=== PATIENT | female | born 1935 | race Caucasian/White ===

== ENCOUNTER → 2023-11-21 08:10 | Outpatient (REF) | payer MEDICARE, SELFPAY ==
[2023-11-21 12:33] LABS: % Basophils 0.5 % (0-2); % Eosinophils 0.5 % (0-6); % Immature Granulocytes 0.5 % (0-0.5); % Lymphocytes 25.8 % (20.5-51.1); % Monocytes 8.5 % (1.7-9.3); % Neutrophils 64.2 % (42.2-75.2); Absolute Monocytes 0.7 10^3/uL (0.1-0.6); Absolute Neutrophils 4.9 10^3/uL (1.4-6.5); Hematocrit 35.4 % (37.0-47.0); Hemoglobin 11.7 g/dL (12.0-16.0); Mean Corp Hgb Conc. 33.1 g/dL (33.0-37.0); Mean Corpuscular Hgb 31.5 pg (27.0-31.0); Mean Corpuscular Volume 95.2 fL (81.0-99.0); Mean Platelet Volume 10.4 fL (7.4-10.4); Nucleated Red Blood Cells % 0 %; Platelet Count 264 10^3/uL (130-400); Red Blood Cell Count 3.72 10^6/uL (4.20-5.40); Red Cell Dist. Width 13.7 % (11.5-14.5); White Blood Cell Count 7.6 10^3/uL (4.8-10.8)
[2023-11-21 12:45] LABS: ALT (SGPT) 19 U/L (0-35); AST (SGOT) 34 U/L (14-36); Albumin 4.5 g/dl (3.5-5.0); Alkaline Phosphatase 61 U/L (38-126); Blood Urea Nitrogen 39 mg/dl (7-17); Calcium 9.5 mg/dl (8.4-10.2); Carbon Dioxide 27 mmol/L (22-30); Chloride 100 mmol/L (98-107); Glucose 98 mg/dl (70-99); HDL Cholesterol 43 mg/dl; LDL Cholesterol, Calculated 133 mg/dl; Potassium 4.5 mmol/L (3.5-5.1); Sodium 135 mmol/L (135-145); Total Bilirubin 0.8 mg/dl (0.2-1.3); Total Cholesterol 220 mg/dl (50-199); Total Protein 7.3 g/dl (6.3-8.2); Triglyceride 220 mg/dl (10-149); Very Low Density Lipoprotein 44 mg/dl (0-30); eGFR 31.21
== END ==
LOC: DHCBS HW 08:10
PROVIDERS: ATTENDING PHYSICIAN Internal Medicine Cardiovascular Disease; FAMILY PHYSICIAN Internal Medicine
DX: I35.1 Nonrheumatic aortic (valve) insufficiency (principal); I10 Essential (primary) hypertension; E78.5 Hyperlipidemia, unspecified; D64.9 Anemia, unspecified
CPT/HCPCS: 36415; 80053; 80061; 85025; 93306

== ENCOUNTER → 2023-12-11 07:07 | Outpatient (REF) | payer MEDICARE, SELFPAY ==
[2023-12-11 09:29] LABS: Blood Urea Nitrogen 40 mg/dl (7-17); Calcium 9.8 mg/dl (8.4-10.2); Carbon Dioxide 29 mmol/L (22-30); Chloride 99 mmol/L (98-107); Glucose 102 mg/dl (70-99); Potassium 4.2 mmol/L (3.5-5.1); Sodium 136 mmol/L (135-145); eGFR 33.73
== END ==
LOC: HWLAB 07:07
PROVIDERS: ATTENDING PHYSICIAN Internal Medicine Cardiovascular Disease; FAMILY PHYSICIAN Internal Medicine
DX: N18.31 Chronic kidney disease, stage 3a (principal)
CPT/HCPCS: 36415; 80048

== ENCOUNTER → 2023-12-17 06:59 | Outpatient (REF) | payer MEDICARE, SELFPAY ==
[2023-12-17 08:58] LABS: % Basophils 0.2 % (0-2); % Lymphocytes 12.3 % (20.5-51.1); % Neutrophils 76.5 % (42.2-75.2); Absolute Immature Granulocytes 0.1 10^3/uL (0-0.05); Absolute Lymphocytes 1.7 10^3/uL (1.2-3.4); Absolute Monocytes 1.4 10^3/uL (0.1-0.6); Absolute Neutrophils 10.6 10^3/uL (1.4-6.5); Hemoglobin 11.2 g/dL (12.0-16.0); Mean Corp Hgb Conc. 32.9 g/dL (33.0-37.0); Mean Corpuscular Hgb 31.4 pg (27.0-31.0); Mean Corpuscular Volume 95.2 fL (81.0-99.0); Mean Platelet Volume 10.6 fL (7.4-10.4); Nucleated Red Blood Cells % 0 %; Platelet Count 292 10^3/uL (130-400); Red Blood Cell Count 3.57 10^6/uL (4.20-5.40); Red Cell Dist. Width 13.1 % (11.5-14.5); White Blood Cell Count 13.9 10^3/uL (4.8-10.8)
[2023-12-17 09:22] LABS: ALT (SGPT) 18 U/L (0-35); AST (SGOT) 28 U/L (14-36); Albumin 4.5 g/dl (3.5-5.0); Alkaline Phosphatase 79 U/L (38-126); Blood Urea Nitrogen 46 mg/dl (7-17); Calcium 9.6 mg/dl (8.4-10.2); Carbon Dioxide 25 mmol/L (22-30); Chloride 101 mmol/L (98-107); Glucose 96 mg/dl (70-99); Sodium 135 mmol/L (135-145); Total Bilirubin 0.5 mg/dl (0.2-1.3); Total Protein 7.4 g/dl (6.3-8.2); eGFR 36.64
[2023-12-17 09:28] LABS: Potassium 4.1 mmol/L (3.5-5.1)
[2023-12-17 09:32] LABS: NT-proBNP 5430 pg/ml
== END ==
LOC: HWLAB 06:59
PROVIDERS: ATTENDING PHYSICIAN Internal Medicine
DX: M54.9 Dorsalgia, unspecified (principal); R63.4 Abnormal weight loss; I35.1 Nonrheumatic aortic (valve) insufficiency
CPT/HCPCS: 36415; 71101; 72072; 72110; 80053; 83880; 85025

== ENCOUNTER → 2024-04-10 07:06 | Outpatient (REF) | payer MEDICARE, SELFPAY ==
[2024-04-10 10:13] LABS: % Basophils 0.7 % (0-2); % Eosinophils 1.2 % (0-6); % Immature Granulocytes 0.7 % (0-0.5); % Lymphocytes 23.8 % (20.5-51.1); % Monocytes 9.2 % (1.7-9.3); % Neutrophils 64.4 % (42.2-75.2); Absolute Basophils 0.1 10^3/uL (0-0.2); Absolute Eosinophils 0.1 10^3/uL (0-0.7); Absolute Immature Granulocytes 0.1 10^3/uL (0-0.05); Absolute Lymphocytes 1.7 10^3/uL (1.2-3.4); Absolute Monocytes 0.7 10^3/uL (0.1-0.6); Absolute Neutrophils 4.7 10^3/uL (1.4-6.5); Hematocrit 34.2 % (37.0-47.0); Hemoglobin 11.3 g/dL (12.0-16.0); Mean Corpuscular Hgb 30.4 pg (27.0-31.0); Mean Corpuscular Volume 91.9 fL (81.0-99.0); Mean Platelet Volume 10.5 fL (7.4-10.4); Nucleated Red Blood Cells % 0 %; Platelet Count 249 10^3/uL (130-400); Red Blood Cell Count 3.72 10^6/uL (4.20-5.40); Red Cell Dist. Width 13.6 % (11.5-14.5); White Blood Cell Count 7.3 10^3/uL (4.8-10.8)
[2024-04-10 10:34] LABS: NT-proBNP 2310 pg/ml
[2024-04-10 11:59] LABS: Blood Urea Nitrogen 64 mg/dl (7-17); Calcium 9.6 mg/dl (8.4-10.2); Carbon Dioxide 26 mmol/L (22-30); Chloride 99 mmol/L (98-107); Glucose 96 mg/dl (70-99); Potassium 4.9 mmol/L (3.5-5.1); Sodium 136 mmol/L (135-145); eGFR 23.73
== END ==
LOC: HWLAB 07:06
PROVIDERS: ATTENDING PHYSICIAN Internal Medicine
DX: I10 Essential (primary) hypertension (principal); I35.1 Nonrheumatic aortic (valve) insufficiency; D64.9 Anemia, unspecified
CPT/HCPCS: 36415; 80048; 83880; 85025

== ENCOUNTER → 2024-05-16 07:22 | Outpatient (REF) | payer MEDICARE, SELFPAY ==
[2024-05-16 09:42] LABS: Blood Urea Nitrogen 46 mg/dl (7-17); Calcium 9.6 mg/dl (8.4-10.2); Carbon Dioxide 27 mmol/L (22-30); Chloride 100 mmol/L (98-107); Glucose 99 mg/dl (70-99); Potassium 5.3 mmol/L (3.5-5.1); Sodium 140 mmol/L (135-145); eGFR 25.24
== END ==
LOC: HWLAB 07:22
PROVIDERS: ATTENDING PHYSICIAN Internal Medicine
DX: R63.4 Abnormal weight loss (principal); N18.30 Chronic kidney disease, stage 3 unspecified
CPT/HCPCS: 36415; 80048

== ENCOUNTER → 2024-06-11 08:21 | Outpatient (REF) | payer MEDICARE, SELFPAY ==
[2024-06-11 10:03] LABS: AST (SGOT) 35 U/L (14-36); Albumin 4.5 g/dl (3.5-5.0); Alkaline Phosphatase 101 U/L (38-126); Blood Urea Nitrogen 30 mg/dl (7-17); Calcium 9.5 mg/dl (8.4-10.2); Carbon Dioxide 21 mmol/L (22-30); Chloride 103 mmol/L (98-107); Glucose 98 mg/dl (70-99); Total Bilirubin 0.8 mg/dl (0.2-1.3); Total Protein 7.2 g/dl (6.3-8.2); eGFR 36.41
[2024-06-11 10:04] LABS: NT-proBNP 2750 pg/ml
[2024-06-11 10:19] LABS: ALT (SGPT) 19 U/L (0-35); Potassium 4.7 mmol/L (3.5-5.1); Sodium 141 mmol/L (135-145)
== END ==
LOC: HWLAB 08:21
PROVIDERS: ATTENDING PHYSICIAN Internal Medicine Cardiovascular Disease; FAMILY PHYSICIAN Internal Medicine
DX: I50.30 Unspecified diastolic (congestive) heart failure (principal)
CPT/HCPCS: 36415; 80053; 83880; 84443

== ENCOUNTER → 2024-09-18 06:37 | Outpatient (REF) | payer MEDICARE, SELFPAY ==
[2024-09-18 09:45] LABS: NT-proBNP 3280 pg/ml
[2024-09-18 10:35] LABS: Blood Urea Nitrogen 29 mg/dl (7-17); Calcium 9.2 mg/dl (8.4-10.2); Carbon Dioxide 27 mmol/L (22-30); Chloride 99 mmol/L (98-107); Glucose 121 mg/dl (70-99); Potassium 4.2 mmol/L (3.5-5.1); Sodium 137 mmol/L (135-145); eGFR 33.52
== END ==
LOC: HWLAB 06:37
PROVIDERS: ATTENDING PHYSICIAN Nurse Practitioner; FAMILY PHYSICIAN Internal Medicine
DX: I10 Essential (primary) hypertension (principal); I50.30 Unspecified diastolic (congestive) heart failure; N18.31 Chronic kidney disease, stage 3a
CPT/HCPCS: 36415; 80048; 83880

== ENCOUNTER 2024-10-20 18:33 | Inpatient (IN) | payer MEDICARE, SELFPAY ==
[2024-10-20] VITALS (9 sets, daily range): BP systolic 130–187; BP diastolic 44–57
[2024-10-20 10:50] LABS: % Basophils 0.5 % (0-2); % Eosinophils 0.8 % (0-6); % Immature Granulocytes 0.8 % (0-0.5); % Lymphocytes 12.4 % (20.5-51.1); % Monocytes 7.5 % (1.7-9.3); Absolute Basophils 0.1 10^3/uL (0-0.2); Absolute Eosinophils 0.1 10^3/uL (0-0.7); Absolute Immature Granulocytes 0.1 10^3/uL (0-0.05); Absolute Lymphocytes 1.6 10^3/uL (1.2-3.4); Absolute Monocytes 0.9 10^3/uL (0.1-0.6); Absolute Neutrophils 9.7 10^3/uL (1.4-6.5); Hematocrit 27.5 % (37.0-47.0); Hemoglobin 8.6 g/dL (12.0-16.0); Mean Corp Hgb Conc. 31.3 g/dL (33.0-37.0); Mean Corpuscular Hgb 28.6 pg (27.0-31.0); Mean Corpuscular Volume 91.4 fL (81.0-99.0); Mean Platelet Volume 9.3 fL (7.4-10.4); Nucleated Red Blood Cells % 0 %; Platelet Count 322 10^3/uL (130-400); Red Blood Cell Count 3.01 10^6/uL (4.20-5.40); Red Cell Dist. Width 14.7 % (11.5-14.5); White Blood Cell Count 12.5 10^3/uL (4.8-10.8)
[2024-10-20 11:14] LABS: PT 45.7 Sec (11.4-14.6)
[2024-10-20 11:16] LABS: APTT 98.7 Sec (23.4-35.0)
[2024-10-20 11:36] LABS: ALT (SGPT) < 10 U/L (0-35); AST (SGOT) 20 U/L (14-36); Albumin 4.5 g/dl (3.5-5.0); Alkaline Phosphatase 83 U/L (38-126); Blood Urea Nitrogen 36 mg/dl (7-17); Calcium 7.9 mg/dl (8.4-10.2); Carbon Dioxide 18 mmol/L (22-30); Chloride 110 mmol/L (98-107); Glucose 82 mg/dl (70-99); Potassium 3.4 mmol/L (3.5-5.1); Sodium 142 mmol/L (135-145); Total Bilirubin 0.5 mg/dl (0.2-1.3); Total Protein 6.7 g/dl (6.3-8.2); eGFR 36.41
--- NOTE | 2024-10-20 12:39 | ED.GENMED ---
History of Present Illness
General
Chief Complaint: Rectal Bleeding
Time Seen by Provider: 10/20/24 12:21
History of Present Illness
History of Present Illness:
89-year-old with history of aortic stenosis, CHF, hypertension, and hyperlipidemia presents to the emergency department for evaluation of vaginal bleeding is been ongoing for the past 2 days. She has been going through multiple pads each day. She
is on Xarelto, last dose was taken this morning. Has had multiple bowel movements since the start of the symptoms with no evidence for blood. Denies any dizziness or lightheadedness, no chest pain or shortness of breath
Past History
Past History
ED Past Medical History: CHF, HTN, Hypercholesterolemia and Valvular disease
ED Past Surgical History: Tonsilectomy
Review of Systems
Review of Systems
Allergies reviewed?: Yes
All Other Systems: ROS reviewed and negative except as documented in HPI and ROS
Phy Exam
Physical Exam
Physical Exam:
GEN: Well appearing, NAD, WDWN
HEENT: Oral mucosa moist, no scleral icterus
Cardiac: Regular rate
Lung: No respiratory distress, no tachypnea
: Exam performed with turbine technician at bedside as track layer. Trace clotted blood in the vaginal vault with thin white discharge. No evidence for rectal bleeding
MSK: No gross deformity or injuries
Skin: Good color, no pallor or jaundice, no rashes
Neuro: AO x3, moves all extremities freely
Psych: Calm, cooperative
Course
Orders/Labs/Results
Orders:
Orders
10/20/24 10:33
Type+Screen Urgent
Complete Blood Count/With Diff Urgent
Comprehensive Metabolic Panel Urgent
PTT Urgent
Prothrombin Time Urgent
10/20/24 12:20
ABO2 Urgent
BBK Wristband Number:
Associate notified that ABO2 has been ordered: ATIFF-ER
Date: 10/20/24
Time: 10:45
Hotel Administrative Assistant ID: [id number]
10/20/24 12:37
US Pelvis W Transvag Combined Urgent
Comment:
Reason For Exam: post menopausal vag bleeding
10/20/24 18:05
Potassium Chloride [KCl] 20 meq PO NOW STA
10/20/24 18:07
Consult VALIDATION SOFTWARE FACILITATOR [VALIDATION SOFTWARE FACILITATOR CONSULT] Routine
Consulting Provider: Tiffanie Jaeger
Was physician already notified: Yes
10/20/24 18:08
Admit/Transfer Patient As Directed
Co-Sign Provider:
Level of Care: Inpatient admission
Assign to:: Medical/Surgical
Physician / Group: Duane Jacob
Diagnosis: Vaginal Bleeding
Reason for Hospitalization: WEAVER DOBBY LOOM consult, possible blood transfusion
Expected length of stay greater than two midnights?: Yes
ELOS- Estimated Length of Stay in days: 3
I certify the patient meets the requirements for IP care: Yes
10/20/24 18:09
PRN Pain Medication Management As Directed
May give lesser potent ordered pain med per pt: Yes
preference::
Protocol:: Medication orders for pain may be administered in a
manner that supports deferring to patient preference
when the pt is:
- Requesting an ordered lesser potent pain medication.
Least to most potent pain medications are defined
as: acetaminophen < NSAID < tramadol < opioids
(morphine, oxycodone, hydromorphone).
- Requesting a lesser dose of the same medication IF
ORDERED.
- Requesting a less intrusive route of administration
if both routes are prescribed by the provider (PO <
IV).
10/20/24 18:11
Code Status As Directed
Resuscitation Status: Do not resuscitate
Reached after discussion with pt or family/Healthcare POA: Yes
DNR Bracelet Application ONCE
10/20/24 20:00
H&H Routine
Abnormal Lab Results
10/20/24
10:33
WBC 12.5 H 10^3/uL
(4.8-10.8)
RBC 3.01 L 10^6/uL
(4.20-5.40)
Hgb 8.6 L g/dL
(12.0-16.0)
Hct 27.5 L %
(37.0-47.0)
MCHC 31.3 L g/dL
(33.0-37.0)
RDW 14.7 H %
(11.5-14.5)
Abs Immat Gran (auto) 0.1 H 10^3/uL
(0-0.05)
Absolute Neuts (auto) 9.7 H 10^3/uL
(1.4-6.5)
Absolute Monos (auto) 0.9 H 10^3/uL
(0.1-0.6)
Immature Gran % 0.8 H %
(0-0.5)
Neutrophils % 78.0 H %
(42.2-75.2)
Lymphocytes % 12.4 L %
(20.5-51.1)
PT 45.7 H Sec
(11.4-14.6)
APTT 98.7 H Sec
(23.4-35.0)
Potassium 3.4 L mmol/L
(3.5-5.1)
Chloride 110 H mmol/L
(98-107)
Carbon Dioxide 18 L mmol/L
(22-30)
BUN 36 H mg/dl
(7-17)
Creatinine 1.4 H mg/dL
(0.6-1.0)
Calcium 7.9 L mg/dl
(8.4-10.2)
10/20/24 10:33
Vital Signs
Initial and Last Documented VS:
Initial Vital Signs
Temp Pulse Resp BP Pulse Ox
98.6 F 66 18 147/57 99
10/20/24 10:24 10/20/24 10:24 10/20/24 10:24 10/20/24 10:24 10/20/24 10:24
Last Documented Vital Signs
Temp Pulse Resp BP Pulse Ox
98.6 F 70 21 138/46 97
10/20/24 10:24 10/20/24 15:15 10/20/24 15:15 10/20/24 15:00 10/20/24 15:15
MDM/Problems Addressed
MDM/Problems Addressed:
Ultimately this presentation is consistent with new endometrial carcinoma until proven otherwise. From that standpoint alone she could reasonably discharged however given the active bleeding in the patient with blood thinner use, last dose this
morning, and a significant decline in her hemoglobin she is not suitable for outpatient management. WEAVER DOBBY LOOM contacted for inpatient consult. Will be admitted to the hospitalist service for further hemoglobin trending and management as indicated
*Critical Care Note
Total Time (30-74mins, 75-104mins- exclusive of procedures): Not Applicable
ED Attending Note
-
Portions of this chart may have been created with voice recognition software.� Occasional wrong word or��sound alike� substitutions may have occurred due to the inherent limitations of voice recognition software.
Discharge Plan
Departure
Patient Disposition: Admit
Date of Disposition: 10/20/24
Time of Disposition: 17:24
Admit to: Med/Surg
Presentation/result/management discussed w/ accepting MD/DO: Hospitalist
Discharge Problem:
Postmenopausal vaginal bleeding, Acute blood loss anemia (ABLA)
Prescriptions:
No Action
metoprolol succinate [Toprol XL] 25 mg Tablet Extended Release 24 Hr
12.5 mg PO DAILY
metoprolol succinate [Toprol XL] 25 mg Tablet Extended Release 24 Hr
25 mg PO QPM
furosemide 20 mg tablet
20 mg PO SUWESA
Patient Comments:
08/30/2023, patient states that when she is feeling sick, she only takes two tablets of this medication; however, she is prescribed to take three tablets daily.
amiodarone 200 mg tablet
100 mg PO DAILY
spironolactone 50 mg Tablet
50 mg PO DAILY
furosemide 20 mg Tablet
20 mg PO MOTUTHFR@0600,1100
Xarelto 15 mg Tablet
15 mg PO DAILY
Referrals:
Hollis Haq MD [Family Provider] -
Interventions
Interventions:
*Risk Screen - Suicide Last Done: 10/20/24 10:24
*General Assessment Last Done: 10/20/24 10:24
*Neglect/Abuse Screening Last Done: 10/20/24 12:08
*ED COVID-19 Vaccine History Last Done: 10/20/24 12:08
YR-Bqnepe-Bxjhvntayo Assessment Last Done: 10/20/24 12:08
ED- Cardiac Assessment Last Done: 10/20/24 12:36
ED- Pulmonary Assessment Last Done: 10/20/24 12:08
Discharge Date and Time
Print Language: MARTINIQUAIS
--- NOTE | 2024-10-20 17:38 | HPS.HSE ---
Family Physician
-
Family Physician: Mook Haq
Chief Complaint
-
Vaginal Bleeding
History of Present Illness
Patient is an 89 y/o female past medical history of paroxysmal atrial fibrillation on Xarelto, valvular heart disease with chronic heart failure who presents with vaginal bleeding. Patient reports bleeding started yesterday. She reports using
about 3 pads yesterday. She denies any prior episodes of post-menopausal bleeding. She denies chest pain, palpitations, dizziness/lightheadedness or shortness of breath. She denies abdominal pain.
Medical History
Past Medical History
Past Medical History: Reports Other
Additional Past Medical History:
Valvular Heart Disease: Mild , Moderate/Severe AR, Moderate/Severe TR
Chronic HFpEF
Severe Pulmonary Hypertension
Paroxysmal Atrial Fibrillation
CKD Stage III
Past Surgical History: Reports Other
Additional Past Surgical History:
Tonsillectomy
Social History
Tobacco: Non-smoker
Alcohol: None
Living: Alone
Family History
Family History: Not pertinent
Allergies / Home Medications
Allergies reflects when Allergies were last updated in [facility].
Home Medications with original date entered in [facility]
Allergy/Medication List:
Allergies
Allergy/AdvReac Type Severity Reaction Status Date / Time
Sulfa (Sulfonamide Allergy Unknown Unknown Verified 10/20/24 10:23
Antibiotics) occurred
when pt
was 22 yo
sulfisoxazole Allergy Unknown Unknown Verified 10/20/24 10:23
Penicillins Allergy Unknown Verified 10/20/24 10:23
occurred
when pt
was 22 yo
Home Medications
metoprolol succinate 25 mg tablet,extended release 24 hr (Toprol XL) 12.5 mg PO DAILY Heart disease/condition 08/01/22
metoprolol succinate 25 mg tablet,extended release 24 hr (Toprol XL) 25 mg PO QPM Heart disease/condition 08/01/22
amiodarone 200 mg tablet 100 mg PO DAILY atrial fibrillation 01/19/23
furosemide 20 mg tablet 20 mg PO SUWESA Fluid retention/Swelling 01/19/23
spironolactone 50 mg tablet 50 mg PO DAILY 08/30/23
furosemide 20 mg tablet 20 mg PO MOTUTHFR@0600,1100 10/20/24
rivaroxaban 15 mg tablet (Xarelto) 15 mg PO DAILY 10/20/24
Review of Systems
-
A 12 point ROS was completed and negative except as noted: Yes
Constitutional: Denies Fever or Chills
Respiratory: Denies Cough or Trouble Breathing
Cardiac: Denies Chest Pain or Palpitations
Abdomen/GI: Denies Abdominal Pain, Nausea or Vomiting
Physical Exam
Vital Signs
Vital Signs
Temp Pulse Resp BP Pulse Ox
98.6 F 70 21 138/46 97
10/20/24 10:24 10/20/24 15:15 10/20/24 15:15 10/20/24 15:00 10/20/24 15:15
Physical Exam
General: Comfortable, Conversant and Other (Appears slightly pale)
HEENT: Anicteric and Moist mucous membranes
Respiratory: Clear and Non Labored Respirations
Cardiac: S1/S2, Regular Rhythm and Murmur
GI: Soft and Non Tender
Rectal: Deferred by Provider
Musculoskeletal: No Clubbing, No Cyanosis and No Edema
Skin: Warm and Dry
Neuro: Awake, Alert, Oriented and Nonfocal/grossly intact
Psych: Calm
Laboratory Results
-
10/20/24 10:33
10/20/24 10:33
Laboratory Results
PT 45.7 Sec (11.4-14.6) H 10/20/24 10:33
INR 5.00 10/20/24 10:33
APTT 98.7 Sec (23.4-35.0) H 10/20/24 10:33
Total Bilirubin 0.5 mg/dl (0.2-1.3) 10/20/24 10:33
AST 20 U/L (14-36) 10/20/24 10:33
ALT < 10 U/L (0-35) 10/20/24 10:33
Alkaline Phosphatase 83 U/L (38-126) 10/20/24 10:33
Pelvic Ultrasound:
Rounded region of heterogeneous echogenicity within the central uterus. Main differential considerations of fibroid and endometrial mass, and endometrial carcinoma is not excluded.
Data Reviewed
-
Ultrasound: Report Reviewed by me
Lab Data: Labs Reviewed by me
Impression/Plan
-
Vaginal Bleeding
-Pelvis US raises concern for possible fibroid vs endometrial mass / cancer
-Consult Gynecology
Acute Blood Anemia secondary to vaginal bleeding
-Monitor serial Hgb
-Blood consent obtained at the time of admission
Chronic HFpEF
Valvular Heart Disease: Mild , Moderate/Severe AR, Moderate/Severe TR
-Continue Lasix and Spironolactone
-Monitor Daily Weights
Paroxysmal Atrial Fibrillation
-Continue metoprolol for rate control
-Xarelto on hold due to bleeding
CKD Stage III
-Creatinine at baseline
DVT proph: SCDs
Code Status: DNR
--- NOTE | 2024-10-20 18:17 | W.PN.UPDATE ---
Update Note
Progress Note Update
I saw and examined the patient.
The ATHLETIC SHOE DESIGNER's note was reviewed and I agree with the note.
89F with PMH Of essential hypertension, diastolic heart failure, paroxysmal A-fib on Xarelto came to ER with increased vaginal bleeding. Patient denies of having any associated dizziness/palpitation. Patient has been on Xarelto for 2 years no
previous history of TIA/CVA. In primary testing in ER concerning of patient possibly having endometrial carcinoma/fibroid.
Patient being admitted to medical services for further evaluation. Gynecology has been consulted by ER doctor.
HEENT: No pallor, cyanosis, or jaundice. Throat clear.
NECK: Supple. No JVD.
RESPIRATORY: Lungs clear to auscultation.
CVS: S1, S2 normal. RRR. No murmur, rub or gallop.
ABDOMEN: Soft, non-tender. No distension. BS+/normal.
EXTREMITIES: No peripheral cyanosis or edema.
SUPERVISORY TRAINING SPECIALIST: AOx3. No focal deficits.
Trans vag US
Rounded region of heterogeneous echogenicity within the central uterus. Main differential considerations of fibroid and endometrial mass, and endometrial carcinoma is not excluded.
As warranted, consider further evaluation with MRI of the pelvis without contrast, if there are no contraindications. If MRI of the pelvis cannot be performed, consider a CT of the pelvis.
The left ovary is not visualized, with no evidence for abnormal left adnexal mass.
Within the right adnexa, there is a simple cyst without definite surrounding ovarian stroma. This simple cyst has maximum dimension of 2.6 cm. This is classified as O-RADS 2, almost certainly benign, and no further imaging follow-up is generally
recommended.
Vaginal bleeding
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
Acute blood loss anemia
-Last known hemoglobin of 11.3 in April 09. Today hemoglobin of 8.6
-Repeat hemoglobin check with transfusion if less than 7, consent obtained ER
-Gynecology consulted by ER physician, await further recommendation
-Hold Xarelto for timing
Paroxysmal atrial fibrillation
Chronic diastolic congestive heart failure
-Continue home dose of oral Lasix
-Maintain on Toprol-XL
-As mentioned above Xarelto be held with new vaginal bleeding
CKDIIIB
-cr close to baseline
DVT prophylaxis -SCD
DNR
Total time spent : 78 mins
I personally saw and examined the patient.
I have reviewed all diagnostic interpretations and treatment plans as written.
Time includes patient management by me, time spent at the patients bedside, time to review lab and imaging results, discussing patient care, documentation in the medical record, and time spent with the family or caregiver and discussing care plan
with RN/Consultants.
--- NOTE | 2024-10-20 18:56 | CS.OBGYN ---
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
-
Pt is seen and examined. History obtained. Full consult dictated.
89 y/o presented to the ED with PMB that started yesterday. Very heavy bleeding last night- woke her up from sleep. Bleeding has continued on and off since then. 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
Pt denies any abd/pelvic pain. Never had bleeding before yesterday. Pt denies any abnl vaginal d/c. Hgb as an out pt 11.3 and down to 8.6 in the ER.
Pelvic u/s reviewed
Vulva/ vagina- atrophic, small amount of blood in the vault
Urethra normal
Cervix- No lesions/ No CMT. Small amount of necrotic material extruding thru the os. Pap smear taken
Uterus- TNS/AV/NT
Adnexa- Fruit Rancher/ No masses
Embx taken- +betadine prep. Tenaculum on ant lip of cervix. Uterus sounded to about 8 cm/AV. Pipelle used. Copious necrotic yellow tissue
10 passes. Pipelle filled with tissue with each and every pass . Pt chava well. Tenaculum removed from the cervix. Cervix was hemostatic. Scant bleeding
Assessment/Plan--
89 y/o with PMB who bled down to a hgb of 8.6. On Xarelto
Adm for bleeding observation and serial hgbs
Pap and EMBx done in the ER- very concerned this is endometrial cancer given the necrotic tissue seen on EMBx
Pt with multiple medical problems to be addressed by the hospitalist service.
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
Transfuse to keep pt's Hgb > 8.0 given her underlying medical issues
This was discussed with pt and her 3 daughters who are in the room with her. Will follow
[2024-10-20] MEDS: KCL 20 MEQ PO (19:30)
[2024-10-20 20:07] LABS: Hematocrit 25.6 % (37.0-47.0); Hemoglobin 8.4 g/dL (12.0-16.0)
[2024-10-21 00:35] VITALS: BP 134/51
[2024-10-21 04:55] VITALS: BP 134/57
[2024-10-21 05:38] LABS: Hematocrit 25.4 % (37.0-47.0); Hemoglobin 8.1 g/dL (12.0-16.0); Mean Corp Hgb Conc. 31.9 g/dL (33.0-37.0); Mean Corpuscular Hgb 28.7 pg (27.0-31.0); Mean Corpuscular Volume 90.1 fL (81.0-99.0); Mean Platelet Volume 9.3 fL (7.4-10.4); Platelet Count 317 10^3/uL (130-400); Red Blood Cell Count 2.82 10^6/uL (4.20-5.40); Red Cell Dist. Width 14.6 % (11.5-14.5)
[2024-10-21 05:40] LABS: Blood Urea Nitrogen 34 mg/dl (7-17); Calcium 8.9 mg/dl (8.4-10.2); Carbon Dioxide 23 mmol/L (22-30); Chloride 105 mmol/L (98-107); Estimated Creatinine Clearance 21 ml/min; Glucose 98 mg/dl (70-99); Magnesium 2.5 mg/dl (1.6-2.3); Potassium 4.9 mmol/L (3.5-5.1); Sodium 139 mmol/L (135-145)
[2024-10-21] MEDS: LASIX 20 MG PO ×2 (06:22→10:22)
[2024-10-21 08:36] VITALS: BP 146/54
--- NOTE | 2024-10-21 09:10 | EDRN ---
Family would like to talk to provider about discharging to home with consults for VN/ Palliative Care. I have already placed a Case mgt consult in. Alex Jacobs ( ange) at [phone] to discuss this timeline with physician. Notified via TT
--- NOTE | 2024-10-21 10:06 | CM ---
CM reviewed pt with Dr Jacob- ADC today pendng gyno clearance
CM met with pt and dtr Britt MERCEDES) and Susana
Pt typically resides alone in a ranc[place] with 0STE
She is independent with her ADls w/o ADs
Has a quad cane and WW for use PRN as well as an emergency response system
Son living with her temporarily
Does not drive and family assists as needed
No financial insecurities
PCP- Mook Haq
Rx- Sarbjit Sami
CM consulted for VN and palliative
Both services explained
Pt and family declined VN as they noted pt does not need therapy and long-term
In agreement with palliative care referral to
Referral made via [facility]
Discharge Disposition- home with Palliative Care, family transport
fax- [phone]
[2024-10-21 10:10] VITALS: BP 125/43
[2024-10-21 10:13] VITALS: BP 123/48
[2024-10-21] MEDS: PACERONE 100 MG PO (10:21)
[2024-10-21] MEDS: ALDACTONE 50 MG PO (10:22)
[2024-10-21] MEDS: TOPROL XL 12.5 MG PO (10:22)
--- NOTE | 2024-10-21 15:14 | W.PN.HOSP.TC ---
Today's Communication/Plan
-
d/c home
Assessment / Plan
Assessment / Plan
Trans vag US
Rounded region of heterogeneous echogenicity within the central uterus. Main differential considerations of fibroid and endometrial mass, and endometrial carcinoma is not excluded.
As warranted, consider further evaluation with MRI of the pelvis without contrast, if there are no contraindications. If MRI of the pelvis cannot be performed, consider a CT of the pelvis.
The left ovary is not visualized, with no evidence for abnormal left adnexal mass.
Within the right adnexa, there is a simple cyst without definite surrounding ovarian stroma. This simple cyst has maximum dimension of 2.6 cm. This is classified as O-RADS 2, almost certainly benign, and no further imaging follow-up is generally
recommended.

Vaginal bleeding
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
Acute blood loss anemia
-Last known hemoglobin of 11.3 in April 09. Hbg settled to 8 today
-Repeat hemoglobin check with transfusion if less than 7, consent obtained ER
-Gynecology evaluated patient in ER, underwent endometrial curettaged and biopsy. Patient to follow-up in office
-Holding Xarelto 48 hrs, cardiology notified about this.
-Patient to be maintained on iron supplement at home
-Palliative care cannot number provided on family request
Paroxysmal atrial fibrillation
Chronic diastolic congestive heart failure
-Continue home dose of oral Lasix
-Maintain on Toprol-XL
-As mentioned above Xarelto be held with new vaginal bleeding
CKDIIIB
-cr close to baseline
DVT prophylaxis -SCD
DNR
More than 30 minutes spent in discharge including
Final examination of the patient
Summarizing hospital stay
Instructions for continuing care to all relevant caregivers
Preparation of discharge records, prescriptions, and referral forms
Total time spent (in minutes): 39 mins
Anticipated Discharge: Today
Subjective/Interval History
-
Date of Service: October 21, 2024
No further significant vaginal bleeding overnight
No other issues reported
Objective Data
-
Labs:
Laboratory Results
10/21/24
04:55
WBC 11.0 H
Hgb 8.1 L
Hct 25.4 L
Plt Count 317
Sodium 139
Potassium 4.9 D
Chloride 105
Carbon Dioxide 23
BUN 34 H
Creatinine 1.3 H
Glucose 98
Calcium 8.9
Vital Signs:
Vital Signs
Temp Pulse Resp BP Pulse Ox
98.0 F 68 16 125/43 97
10/21/24 10:13 10/21/24 10:22 10/21/24 10:13 10/21/24 10:22 10/21/24 10:13
Review of Systems
-
Respiratory: Reports No Symptoms
Cardiac: Reports No Symptoms
Abdomen/GI: Reports No Symptoms
Physical Exam
-
General: No Apparent Distress
HEENT: Moist Mucous Membranes and PERRLA
Respiratory: Clear to Auscultation
Cardiac: Regular Rhythm and S1/S2; Negative Murmur, Rub or JVD
GI: Soft, Nontender and Nondistended
Musculoskeletal: No Clubbing, No Cyanosis and No Edema
Neuro: Awake, Alert, Oriented, No Motor Deficits and Nonfocal/Grossly Intact
--- NOTE | 2024-10-22 18:47 | W.DCSUMMARY ---
Discharge Summary
Discharge Data
Date of Admission: 10/20/24
Date of Discharge: 10/21/24
-
Pending Results: No
Hospital Course
Discharging Physician : Dr Duane Jacob
Disposition :Home
Primary care physician : Dr. Mook Padgett
Principal Discharge diagnosis :
Vaginal bleeding from presumed endometrial cancer
Acute blood loss anemia
Chronic Discharge diagnosis :
Paroxysmal atrial fibrillation on Xarelto
Chronic kidney disease stage IIIb
Hospital Course :
Patient is 89-year-old female with mentioned past medical history came to ER with new onset of excessive vaginal bleeding. Patient denied of having any associated dizziness/palpitation episode. Denies of having any lower abdominal discomfort/pain.
Lab evaluation showing patient having new blood loss anemia. Transvaginal ultrasound suggestive of possible endometrial carcinoma and fibroid. Gynecology was involved in care and patient underwent bedside Pap smear and uterine biopsy. Patient
was monitored in the hospital and post ablation was discharged home with follow-up with gynecology in office. Patient started on iron supplementation. Palliative care office contact provided as per family request as well. Of note patient is on
Xarelto for history of atrial fibrillation which will be held for 48 hours postdischarge.
Important imaging findings :
None
Procedure findings :
None
Discharge Plan
-
Patient Disposition: Home with Home Care
Discharge Diagnosis/Procedures: Presumed endometrial cancer, Blood loss anemia
Condition: Fair
Diet: Regular
Activity: As tolerated
Driving Restrictions: No driving
Bathing Restrictions: OK to Shower
Referrals:
Tiffanie Jaeger MD [Active] - in one to two weeks
Hollis Haq MD [Family Provider] - in one week
Denise Henriquez MD [Active] -
Prescriptions:
New
ferrous sulfate 325 mg (65 mg iron) tablet
325 mg PO Q OTHER DAY Qty: 30 0RF
Continued
metoprolol succinate [Toprol XL] 25 mg Tablet Extended Release 24 Hr
12.5 mg PO DAILY
metoprolol succinate [Toprol XL] 25 mg Tablet Extended Release 24 Hr
25 mg PO QPM
furosemide 20 mg tablet
20 mg PO SUWESA
Patient Comments:
08/30/2023, patient states that when she is feeling sick, she only takes two tablets of this medication; however, she is prescribed to take three tablets daily.
amiodarone 200 mg tablet
100 mg PO DAILY
spironolactone 50 mg Tablet
50 mg PO DAILY
furosemide 20 mg Tablet
20 mg PO MOTUTHFR@0600,1100
Held
Xarelto 15 mg Tablet
15 mg PO DAILY
Hold Instructions: Resume on 10/20/24. Resume only after follow up with Cardiology in office
Discharge Orders:
Discharge Patient (As Directed); Ordered 10/21/24
Ordered By: Duane Jacob
Discharge Date and Time
Discharge Date/Time: 10/21/24 13:50
Print Language: NORWEGI[place]
== END 2024-10-21 13:50 | disposition home health service (06) | DRG 755 ==
LOC: LDRP 18:33
PROVIDERS: Emergency Medicine; Physician Assistant Medical; ADMITTING PHYSICIAN Hospitalist; CONSULT PHYSICIAN Obstetrics & Gynecology Gynecology; EMERGENCY PHYSICIAN Student in an Organized Health Care Education/Training Program; FAMILY PHYSICIAN Internal Medicine
DX: C54.1 Malignant neoplasm of endometrium (principal); C79.82 Secondary malignant neoplasm of genital organs; D62 Acute posthemorrhagic anemia; I50.32 Chronic diastolic (congestive) heart failure; I13.0 Hypertensive heart and chronic kidney disease with heart failure and stage 1 through stage 4 chronic kidney disease, or unspecified chronic kidney disease; Z66 Do not resuscitate; N95.0 Postmenopausal bleeding; Z79.01 Long term (current) use of anticoagulants; I48.0 Paroxysmal atrial fibrillation; N18.30 Chronic kidney disease, stage 3 unspecified
CPT/HCPCS: 88305; 76830; 76856; 80048; 80053; 83735; 85014; 85018; 85025; 85027; 85610; 85730; 86850; 86900; 86901; 99285; G0123

== ENCOUNTER → 2024-11-11 06:30 | Outpatient (REF) | payer MEDICARE, SELFPAY ==
[2024-11-11 10:03] LABS: Blood Urea Nitrogen 48 mg/dl (7-17); Calcium 9.4 mg/dl (8.4-10.2); Carbon Dioxide 24 mmol/L (22-30); Chloride 99 mmol/L (98-107); Glucose 98 mg/dl (70-99); Potassium 4.9 mmol/L (3.5-5.1); Sodium 135 mmol/L (135-145); eGFR 28.84
[2024-11-11 10:13] LABS: % Basophils 1.4 % (0-2); % Eosinophils 3.1 % (0-6); % Immature Granulocytes 0.5 % (0-0.5); % Lymphocytes 29.1 % (20.5-51.1); % Monocytes 10.5 % (1.7-9.3); % Neutrophils 55.4 % (42.2-75.2); Absolute Basophils 0.1 10^3/uL (0-0.2); Absolute Eosinophils 0.2 10^3/uL (0-0.7); Absolute Lymphocytes 1.7 10^3/uL (1.2-3.4); Absolute Monocytes 0.6 10^3/uL (0.1-0.6); Absolute Neutrophils 3.2 10^3/uL (1.4-6.5); Hematocrit 32.1 % (37.0-47.0); Hemoglobin 9.9 g/dL (12.0-16.0); Mean Corp Hgb Conc. 30.8 g/dL (33.0-37.0); Mean Corpuscular Hgb 28.9 pg (27.0-31.0); Mean Corpuscular Volume 93.6 fL (81.0-99.0); Mean Platelet Volume 9.9 fL (7.4-10.4); Nucleated Red Blood Cells % 0 %; Platelet Count 331 10^3/uL (130-400); Red Blood Cell Count 3.43 10^6/uL (4.20-5.40); Red Cell Dist. Width 16.1 % (11.5-14.5); White Blood Cell Count 5.8 10^3/uL (4.8-10.8)
[2024-11-11 10:24] LABS: NT-proBNP 1900 pg/ml
== END ==
LOC: HWLAB 06:30
PROVIDERS: ATTENDING PHYSICIAN Nurse Practitioner; FAMILY PHYSICIAN Internal Medicine; REFERRING PHYSICIAN Hospitalist
DX: I35.1 Nonrheumatic aortic (valve) insufficiency (principal); N18.31 Chronic kidney disease, stage 3a; D64.9 Anemia, unspecified
CPT/HCPCS: 36415; 80048; 83880; 85025

== ENCOUNTER → 2024-12-25 06:18 | Outpatient (REF) | payer MEDICARE, SELFPAY ==
[2024-12-25 09:24] LABS: % Basophils 1.7 % (0-2); % Eosinophils 0.7 % (0-6); % Immature Granulocytes 0.4 % (0-0.5); % Lymphocytes 30.8 % (20.5-51.1); % Monocytes 10.5 % (1.7-9.3); % Neutrophils 55.9 % (42.2-75.2); Absolute Basophils 0.1 10^3/uL (0-0.2); Absolute Eosinophils 0.1 10^3/uL (0-0.7); Absolute Lymphocytes 2.1 10^3/uL (1.2-3.4); Absolute Monocytes 0.7 10^3/uL (0.1-0.6); Absolute Neutrophils 3.8 10^3/uL (1.4-6.5); Hematocrit 35.1 % (37.0-47.0); Hemoglobin 11.3 g/dL (12.0-16.0); Mean Corp Hgb Conc. 32.2 g/dL (33.0-37.0); Mean Corpuscular Hgb 29.4 pg (27.0-31.0); Mean Corpuscular Volume 91.4 fL (81.0-99.0); Mean Platelet Volume 10.1 fL (7.4-10.4); Nucleated Red Blood Cells % 0 %; Platelet Count 307 10^3/uL (130-400); Red Blood Cell Count 3.84 10^6/uL (4.20-5.40); Red Cell Dist. Width 14.5 % (11.5-14.5); White Blood Cell Count 6.9 10^3/uL (4.8-10.8)
[2024-12-25 09:52] LABS: ALT (SGPT) 14 U/L (0-35); AST (SGOT) 29 U/L (14-36); Albumin 4.4 g/dl (3.5-5.0); Alkaline Phosphatase 80 U/L (38-126); Blood Urea Nitrogen 51 mg/dl (7-17); Calcium 9.8 mg/dl (8.4-10.2); Carbon Dioxide 27 mmol/L (22-30); Chloride 102 mmol/L (98-107); Glucose 100 mg/dl (70-99); HDL Cholesterol 40 mg/dl; LDL Cholesterol, Calculated 169 mg/dl; Sodium 138 mmol/L (135-145); Total Bilirubin 0.7 mg/dl (0.2-1.3); Total Cholesterol 238 mg/dl (50-199); Total Protein 7.5 g/dl (6.3-8.2); Triglyceride 145 mg/dl (10-149); Very Low Density Lipoprotein 29 mg/dl (0-30); eGFR 26.93
== END ==
LOC: HWLAB 06:18
PROVIDERS: ATTENDING PHYSICIAN Internal Medicine; REFERRING PHYSICIAN Internal Medicine Cardiovascular Disease
DX: I10 Essential (primary) hypertension (principal); E78.5 Hyperlipidemia, unspecified; D63.8 Anemia in other chronic diseases classified elsewhere; I50.30 Unspecified diastolic (congestive) heart failure
CPT/HCPCS: 36415; 80053; 80061; 85025

== ENCOUNTER → 2025-04-01 06:24 | Outpatient (REF) | payer MEDICARE, SELFPAY ==
[2025-04-01 09:47] LABS: Hematocrit 33.0 % (37.0-47.0); Hemoglobin 10.6 g/dL (12.0-16.0); Mean Corp Hgb Conc. 32.1 g/dL (33.0-37.0); Mean Corpuscular Volume 95.9 fL (81.0-99.0); Nucleated Red Blood Cells % 0 %; Platelet Count 249 10^3/uL (130-400); Red Cell Dist. Width 14.5 % (11.5-14.5)
[2025-04-01 09:58] LABS: Blood Urea Nitrogen 54 mg/dl (7-17); Calcium 9.7 mg/dl (8.4-10.2); Carbon Dioxide 26 mmol/L (22-30); Chloride 105 mmol/L (98-107); Glucose 102 mg/dl (70-99); Potassium 5.0 mmol/L (3.5-5.1); Sodium 136 mmol/L (135-145); eGFR 28.67
== END ==
LOC: HWLAB 06:24
PROVIDERS: ATTENDING PHYSICIAN Internal Medicine Cardiovascular Disease; FAMILY PHYSICIAN Internal Medicine
DX: I50.30 Unspecified diastolic (congestive) heart failure (principal); D64.9 Anemia, unspecified; D63.8 Anemia in other chronic diseases classified elsewhere
CPT/HCPCS: 36415; 80048; 85025